=== PATIENT | female | born 1960 | race Caucasian/White ===

== ENCOUNTER 2021-04-18 14:00 | Outpatient (REF) | payer OTHER, SELFPAY | END 2021-04-18 14:01 | disposition home or self-care (01) | LOC: HO.LNP 14:00 | PROVIDERS: Visit Provider Otolaryngology | DX: B37.9 Candidiasis, unspecified (principal) | CPT/HCPCS: 87071; 87102; 87205 ==

== ENCOUNTER 2021-10-27 14:57 | Outpatient (REF) | payer OTHER, SELFPAY ==
[2021-10-27 15:48] LABS: Alanine Aminotransferase 34 U/L (0-31); Albumin Level 4.3 g/dL (3.5-5.0); Alkaline Phosphatase 52 U/L (39-117); Aspartate Amino Transferase 25 U/L (5-31); Bilirubin Direct 0.2 mg/dL (0.0-0.5); Bilirubin Total 0.6 mg/dL (0.0-1.0); Lactate Dehydrogenase 146 U/L (122-220); Total Protein 6.5 g/dL (6.5-8.0)
== END 2021-10-27 14:58 | disposition home or self-care (01) ==
LOC: HO.LAB 14:57
PROVIDERS: PCP Internal Medicine; Visit Provider Otolaryngology
DX: B37.0 Candidal stomatitis (principal)
CPT/HCPCS: 36415; 80076; 83615

== ENCOUNTER 2022-05-30 14:06 | Outpatient (REF) | payer OTHER, SELFPAY | END 2022-05-30 14:07 | disposition home or self-care (01) | LOC: HO.LNP 14:06 | PROVIDERS: Visit Provider Otolaryngology | DX: B37.0 Candidal stomatitis (principal) | CPT/HCPCS: 87102; 87106 ==